=== PATIENT | male | born 1950 | race Caucasian/White ===

== ENCOUNTER 2016-10-08 05:11 | Observation (INO) | payer MEDICARE ==
[~2016-10-08] VITALS: Ht 170.2 cm; Wt 112.0 kg
[2016-10-08] VITALS (7 sets, daily range): BP systolic 152–178; BP diastolic 87–99; PULSE 64–77; RESP 16–20; TEMP 97.4–98.4; O2SAT 92–94
[~2016-10-08 05:11] MED LIST: ALPR0.5T3 PO; AMLO10 PO; GLIP10TA6 PO; LISI40TA PO; METF1000 PO; PROP1CAP3 PO; XANA1TAB2 PO
[2016-10-08] MEDS ORDERED: SODIUM CHLORIDE 0.9% INJ 100 ML ONE (06:50)
[2016-10-08] MEDS ORDERED: CLINDAMYCIN 600 MG/NS 100 ML IV SCH ×2 (07:00)
[2016-10-08] MEDS ORDERED: LIDOCAINE 1%/EPINEPHrine 1:100,000 SOLN 20 ML VIAL ONE ×2 (07:07→08:21)
[2016-10-08] MEDS ORDERED: THROMBIN (TOPICAL) 5,000 UNIT VIAL ONE (07:09)
[2016-10-08] MEDS ORDERED: OXYMETAZOLINE HCL 0.05% 15 ML NASAL SPRAY ONE ×2 (07:09→08:50)
[2016-10-08] MEDS ORDERED: BACITRACIN TOP OINT 15 GM TUBE ONE (07:09)
[2016-10-08] MEDS ORDERED: EPINEPHrine HCL (1:1000) 30 MG/30 ML VIAL ONE (07:09)
[2016-10-08] MEDS ORDERED: MUPIROCIN 2% OINT 22 GM TUBE ONE (07:13)
[2016-10-08] MEDS ORDERED: MIDAZOLAM HCL 2 MG/2 ML VIAL ONE (07:19)
[2016-10-08] MEDS ORDERED: fentaNYL CITRATE 250 MCG/5 ML AMP ONE (07:19)
[2016-10-08] MEDS ORDERED: ACETAMINOPHEN 1000 MG/100 ML VIAL IV ONE (07:19)
[2016-10-08] MEDS ORDERED: DEXAMETHASONE SOD PHOS 4 MG/ML VIAL ONE (07:19)
[2016-10-08] MEDS ORDERED: FAMOTIDINE 20 MG/2 ML VIAL ONE (07:19)
[2016-10-08 07:34] LABS: AUTOMATED NEUTROPHIL # 4.3 TH/MM3 (1.8-7.7); BASOPHIL # 0.1 TH/MM3 (0-0.2); BASOPHIL % 0.8 % (0.0-2.0); EOSINOPHIL # 0.2 TH/MM3 (0-0.4); EOSINOPHIL % 2.1 % (0.0-4.0); HEMATOCRIT 40.9 % (39.0-51.0); HEMO FLAGS DIFF FINAL; LYMPH % 31.4 % (9.0-44.0); LYMPHOCYTE # 2.3 TH/MM3 (1.0-4.8); MEAN CELL VOLUME 86.8 FL (80.0-100.0); MEAN CORPUSCULAR HEMOGLOBIN 29.5 PG (27.0-34.0); MONO % 7.2 % (0.0-8.0); NEUT % 58.5 % (16.0-70.0); PLATELET COUNT 163 TH/MM3 (150-450); RED BLOOD COUNT 4.71 MIL/MM3 (4.50-5.90); RED CELL DISTRIBUTION WIDTH 14.6 % (11.6-17.2); WHITE BLOOD COUNT 7.4 TH/MM3 (4.0-11.0)
[2016-10-08 07:56] LABS: BICARBONATE 26.4 MEQ/L (21.0-32.0); POTASSIUM 3.9 MEQ/L (3.5-5.1)
[2016-10-08] MEDS ORDERED: *ONDANSETRON 4 MG VIAL PERIprocedural Use ONLY ONE (10:56)
[2016-10-08] MEDS ORDERED: ALPRAZolam 0.5 MG TAB PO PRN (11:45)
[2016-10-08] MEDS ORDERED: LEVOFLOXACIN 500 MG PREMIX INJ 100 ML IV SCH (12:00)
[2016-10-08] MEDS ORDERED: PROPOFOL 200 MG/20 ML AMP IV ONE (12:00)
[2016-10-08] MEDS ORDERED: ONDANSETRON HCL 4 MG/2 ML VIAL IV PUSH PRN (12:00)
[2016-10-08] MEDS ORDERED: ePHEDrine/NS 25 MG/5 ML SYR IV ONE (12:00)
[2016-10-08] MEDS ORDERED: LACTATED RINGER'S 1000 ML INJ 1,000 ML IV SCH (12:00)
[2016-10-08] MEDS ORDERED: NEOSTIGMINE 3 MG/3 ML SYR IV ONE (12:00)
[2016-10-08] MEDS ORDERED: ONDANSETRON HCL 4 MG/2 ML VIAL IV PUSH ONE (12:00)
[2016-10-08] MEDS ORDERED: ACETAMINOPHEN/HYDROcodone 325 MG/5 MG TAB PO PRN (12:00)
[2016-10-08] MEDS ORDERED: LACTATED RINGER'S 1000 ML INJ 1,000 ML IV ONE (12:00)
[2016-10-08] MEDS: glipiZIDE 10 MG TAB PO SCH (16:00)
[2016-10-08] MEDS: metFORMIN HCL 500 MG TAB PO SCH (18:00)
--- NOTE | 2016-10-08 19:43 | EKG ---
Date Performed: 10/08/2016 Time Performed: 07:12:36 PTAGE: 65 years EKG: Sinus rhythm NONSPECIFIC T-WAVE ABNORMALITY BORDERLINE ECG PREVIOUS TRACING : 11/14/2006 14.30 Compared to prior tracing no significant change DOCTOR: Jany Camilo Interpretating Date/Time 10/08/2016 19:42:22
[2016-10-08] MEDS ORDERED: METOCLOPRAMIDE HCL 10 MG/2 ML VIAL IV PRN (19:45)
[2016-10-08] MEDS: PROPRANOLOL HCL LA 80 MG CAP PO SCH (22:44)
[2016-10-09] VITALS: BP 166/89; PULSE 82; RESP 20; TEMP 97.8; O2SAT 94
[2016-10-09 04:00] VITALS: BP 171/89; PULSE 74; RESP 20; TEMP 97.8; O2SAT 93
[2016-10-09] MEDS: glipiZIDE 10 MG TAB PO SCH (06:25)
[2016-10-09] MEDS: metFORMIN HCL 500 MG TAB PO SCH (08:04)
[2016-10-09] MEDS: PROPRANOLOL HCL LA 80 MG CAP PO SCH (08:09)
[2016-10-09 08:31] VITALS: BP 154/88; PULSE 74; RESP 16; TEMP 96.6; O2SAT 93
[2016-10-09] MEDS ORDERED: LISINOPRIL 20 MG TAB PO SCH (09:00)
[2016-10-09] MEDS ORDERED: ALPRAZolam 1 MG TAB PO SCH (09:00)
--- NOTE | 2016-11-18 07:02 | MP ---
cc: TANO GOODMAN M.D. DATE OF OPERATION October 08, [address] Tano Goodman PREOPERATIVE DIAGNOSES 1. Sinonasal polyposis. 2. Chronic sinusitis. 3. Nasal airway obstruction. 4. Nasal septal deviation. 5. Hypertrophy of inferior turbinates. POSTOPERATIVE DIAGNOSES 1. Sinonasal polyposis. 2. Chronic sinusitis. 3. Nasal airway obstruction. 4. Nasal septal deviation. 5. Hypertrophy of inferior turbinates. OPERATION PERFORMED 1. Open repair of nasoseptal fracture. 2. Bilateral submucosal resection of inferior turbinates. 3. Bilateral endoscopic total ethmoidectomy. 4. Bilateral endoscopic maxillary antrostomy with debridement of maxillary sinus contents. 5. Bilateral endoscopic sphenoidotomy with debridement of sinus contents. 6. Bilateral endoscopic exploration of frontal sinus ducts with balloon dilation. INDICATIONS Documented in the history and physical. DESCRIPTION OF OPERATION The patient was taken to OR #8 and placed in the supine position. Following induction of general anesthesia and intubation the nose was packed bilaterally with cotton pledgets saturated in 0.05% Oxymetazoline. The nasal septum and inferior turbinates were injected with a total of 12 mL of 1% Xylocaine with epinephrine 1:100,000. He was then prepped and draped for surgery. The nasal packing was removed and a hemitransfixion incision was made in the left nasal vestibule. Through this incision the mucosa of septum was elevated bilaterally as far as the junction of the bony cartilaginous septum. This exposed the quadrangular cartilage which revealed severe and irregular deviation bilaterally due to evidence of old long-healed septal fracture. A cumulative area of 2 x 3-cm was removed preserving 1.5-cm dorsal and caudal cartilaginous struts. Next, the mucosa was elevated from the bony septum and maxillary crest and these were removed using Kevin-Hernan forceps on the bony septum and a 6-mm Wanda chisel on the maxillary crest. The anterior nasal spine was preserved. The incision was then closed with a running suture of 4-0 chromic and the mucosal layers of septum were approximated to each other with a quilting stitch of 4-0 plain gut. The inferior turbinates were addressed. Next they were fractured out medially and stab incisions were made along their inferior surfaces. Through these incisions the submucosal soft tissue was reduced using a curette and preserving the conchal bone. The incisions were then cauterized using the suction Bovie at 35 samson. The remainder of the operation was done using endoscopic visualization. The superior two-thirds of both nasal vaults were filled with polypoid tissue. This was injected with the lidocaine/epinephrine solution, then removed using the power microdebrider to allow inspection of the lateral nasal wall. The polyps were prolapsing from the middle and superior meatus of both sides. When the lateral nasal wall anatomy was visible, it was also injected with lidocaine and epinephrine solution into the attachments of middle turbinates, the uncinate processes and the anterior ethmoid cells. The left side was addressed first beginning with amputation of the middle turbinate using through-cutting Blakesley forceps and power microdebrider followed by uncinectomy and exoneration of the anterior and posterior ethmoid cells using blunt and power dissection. Bone and soft tissue from these cavities were included in the specimen labeled left sinus contents. This was carried back as far as the rostrum of the sphenoid. Next, the polypoid tissue prolapsing from the maxillary ostia was removed using Blakesley forceps. This revealed the ostium which was enlarged and with the power debrider and Stammberger forceps. The maxillary cavity was filled with polypoid tissue, was debrided with an up-biting Blakesley forceps rotated 90 degrees. This was all included in the left sinus contents specimen. Next the maxillary ostium was probed using a #10 suction and it also was then enlarged with the power debrider and debrided of its polypoid tissue contents. The left side was then irrigated with iced saline and packed with cotton pledgets saturated in Oxymetazoline. These remained in place while the right side was operated in the same fashion beginning with amputation of the middle turbinate, uncinectomy, exoneration of the anterior and posterior cells. These were all included in the specimen labeled right sinus contents. The maxillary ostium was enlarged and the cavity was debrided and the same was then completed on the right sphenoid sinus. When these were completed, this right side was then also irrigated with the iced saline and packed with cotton pledgets saturated in Oxymetazoline. These remained in place while the balloon dilation of the frontal ducts was completed, the left side first. The guidewire was advanced into the frontal sinus. The balloon was then advanced over the wire and the duct was dilated at three levels superiorly at the midpoint and inferiorly at the junction of the frontal duct with the ethmoid cavities. When this was completed, the balloon was removed and the frontal sinus was irrigated through the guidewire channels using 200 mL of saline. The guidewire was removed, then advanced into the right frontal sinus. This was then operated in the same fashion with dilation followed by irrigation. The balloon was then removed and the packing was removed from the ethmoid and sphenoid sinuses. Both sides were then filled with Stammberger sinus foam in the sinus cavities and the inferior one-third nasal vault was then packed with 5.5-cm Rapid Rhino inflatable packs. The procedure was then terminated. The patient was reversed from anesthesia and taken to recovery in good condition. No complications. Blood loss was 500 mL. Tano Goodman MD [facility] /6:58 AM /6:49 AM
== END 2016-10-09 09:59 | disposition home or self-care (01) ==
LOC: HSDC 05:11 → HOCA 15:50
PROVIDERS: ADMIT Otolaryngology; ATTEND Otolaryngology
DX: J34.89 Other specified disorders of nose and nasal sinuses (principal); J34.2 Deviated nasal septum; J33.9 Nasal polyp, unspecified; J32.9 Chronic sinusitis, unspecified; J34.3 Hypertrophy of nasal turbinates; E11.9 Type 2 diabetes mellitus without complications
CPT/HCPCS: 00160; 21336; 30140; 31255; 31267; 31288; 31296; 80048; 82948; 85025; 88305; 88311; 88331; 93005; 94150; G0378; J0131; J1100; J1956; J2250; J2405; J2710; J3010; J7120; J0171

== ENCOUNTER 2016-11-04 06:01 | Emergency (ER) | payer MEDICARE ==
[~2016-11-04] VITALS: Ht 170.2 cm; Wt 111.5 kg
[2016-11-04 06:11] VITALS: PULSE 95; RESP 14; O2SAT 95
[2016-11-04 06:22] VITALS: BP 127/67; PULSE 89; RESP 14; O2SAT 95
--- NOTE | 2016-11-04 06:26 | PD ---
HPI Chief Complaint: Nosebleed Time Seen by Provider: 06:22 Travel History International Travel<30 days: No Contact w/Intl Traveler<30days: No Traveled to known affect area: No History of Present Illness HPI This is a 66-year-old gentleman with history of diabetes mellitus, hypertension , who presents here with left sided epistaxis starting this morning. The patient is status post bilateral nasal polypectomies [address] Goodman. He reports that he had complications with his left polypectomy which required sutures. He reports this morning he noted that he thought he felt blood coming down his face. He went to the bathroom and noted a large amount of blood draining from his left naris. When paramedics arrived, they report a large amount of blood and clots in the bathroom. He had active bleeding for which they thought was bilateral. The patient denies any history of blood thinners or aspirin. There are no other complaints time of my examination. PFSH Past Medical History Arthritis: Yes Blood Disorders: No Anxiety: Yes Depression: No Heart Rhythm Problems: No Cancer: No Cardiac Catheterization: No Cardiovascular Problems: Yes (HTN) High Cholesterol: Yes Congestive Heart Failure: No Diabetes: Yes Patient Takes Glucophage: No Diminished Hearing: No Endocrine: Yes Gastrointestinal Disorders: No Genitourinary: No Hepatitis: No Hiatal Hernia: No Hypertension: Yes Immune Disorder: No Musculoskeletal: Yes (wrist) Neurologic: No Psychiatric: Yes Reproductive: No Respiratory: Yes Myocardial Infarction: No Sleep Apnea: Yes Thyroid Disease: No Tetanus Vaccination: Unknown Past Surgical History Abdominal Surgery: Yes (Hernia repair 1996, cholecystecemy 1997) Cardiac Surgery: No Cholecystectomy: Yes Ear Surgery: No Endocrine Surgery: No Eye Surgery: No Genitourinary Surgery: No Gynecologic Surgery: No Joint Replacement: No Neurologic Surgery: Yes (Cervical [id number]) Oral Surgery: No Pacemaker: No Thoracic Surgery: No Other Surgery: Yes (Nasal Polyp removal 3 weeks ago) Social History Alcohol Use: No Tobacco Use: No Substance Use: No Allergies-Medications (Allergen,Severity, Reaction): Coded Allergies: Penicillin (Verified Allergy, Severe, HIVES, 10/08/16) Codeine (Verified Adverse Reaction, Severe, VOMITING, 10/08/16) Morphine (Verified Adverse Reaction, Severe, VOMITING, 10/08/16) Reported Meds & Prescriptions Reported Meds & Active Scripts Active Reported Alprazolam 0.5 Mg Tab 0.5 Mg PO HS PRN Metformin (Metformin HCl) 1,000 Mg Tab 1,000 Mg PO BIDPC With meals Lisinopril 40 Mg Tab 40 Mg PO DAILY Xanax (Alprazolam) 1 Mg Tab 1 Mg PO DAILY Norvasc (Amlodipine Besylate) 10 Mg Tab 10 Mg PO DAILY Glipizide 10 Mg Tab 10 Mg PO BIDAC Take 30 minutes before a meal Inderal XL 24 HR (Propranolol ER 24 HR) 80 Mg Cap 80 Mg PO BID Review of Systems Except as stated in HPI: all other systems reviewed are Neg HENT: Positive: Nosebleed, No: Headaches, Lightheadedness Cardiovascular: No: Chest Pain or Discomfort, Palpitations Respiratory: No: Cough, Shortness of Breath Gastrointestinal: Positive: Nausea, Vomiting (clots), No: Diarrhea, Abdominal Pain Musculoskeletal: No: Weakness, Pain Neurologic: No: Weakness, Dizziness, Headache Physical Exam Narrative GENERAL: Well-developed well-nourished gentleman who had red blood noted on his shirt and in the wash cloth that he was holding up pinching his nose. SKIN: Focused skin assessment warm/dry. ENT: Nasal bleeding. Appeared more from the left than from the right. Moist mucous membranes. NECK: Trachea midline. Supple. CARDIOVASCULAR: Regular rate and rhythm. No murmur appreciated. RESPIRATORY: No accessory muscle use. Clear to auscultation. Breath sounds equal bilaterally. NEUROLOGICAL: Awake and alert. No obvious cranial nerve deficits. Motor grossly within normal limits. Normal speech. Data Data Last Documented VS Vital Signs Date Time Temp Pulse Resp B/P Pulse Ox O2 Delivery O2 Flow Rate FiO2 11/04/16 06:22 89 14 127/67 95 Room Air Orders Complete Blood Count With Diff (11/04/16 06:22) Prothrombin Time / Inr (Pt) (11/04/16 06:22) Act Partial Throm Time (Ptt) (11/04/16 06:22) Labs Laboratory Tests Test 11/04/16 06:25 White Blood Count 7.8 TH/MM3 Red Blood Count 4.31 MIL/MM3 Hemoglobin 12.3 GM/DL Hematocrit 37.2 % Mean Corpuscular Volume 86.4 FL Mean Corpuscular Hemoglobin 28.5 PG Mean Corpuscular Hemoglobin 33.0 % Concent Red Cell Distribution Width 14.6 % Platelet Count 229 TH/MM3 Mean Platelet Volume 8.3 FL Neutrophils (%) (Auto) 53.8 % Lymphocytes (%) (Auto) 35.8 % Monocytes (%) (Auto) 7.4 % Eosinophils (%) (Auto) 2.0 % Basophils (%) (Auto) 1.0 % Neutrophils # (Auto) 4.2 TH/MM3 Lymphocytes # (Auto) 2.8 TH/MM3 Monocytes # (Auto) 0.6 TH/MM3 Eosinophils # (Auto) 0.2 TH/MM3 Basophils # (Auto) 0.1 TH/MM3 CBC Comment DIFF FINAL Differential Comment Prothrombin Time 10.3 SEC Prothromb Time International 0.9 RATIO Ratio Activated Partial 28.0 SEC Thromboplast Time MDM Medical Decision Making Medical Screen Exam Complete: Yes Emergency Medical Condition: Yes Differential Diagnosis Bilateral versus unilateral epistaxis. Posterior versus anterior epistaxis. Narrative Course 66-year-old male who status post bilateral polypectomy, presents today with complaints of epistaxis starting this morning. The patient states he was blowing his nose when he noted it. The patient has been packed on the left side with a 7.5 cm Rhino Rocket. Epistaxis has ceased. CBC shows no evidence of acute issues. Patient's but was counts were within normal limits. We are waiting the PT and APTT. I discussed case with Dr. Denisse Concepcion, physician replacing this physician, he will follow up on the coags and then call Dr. Goodman for disposition. I anticipate Dr. Goodman want to see the patient in his office on a scheduled appointment on . Diagnosis Primary Impression: Left-sided epistaxis Additional Impressions: history of bilateral polypectomy History of urinary retention History of diabetes mellitus Oniel Damon MD Nov 04, 2016 06:26
[2016-11-04 06:52] LABS: AUTOMATED NEUTROPHIL # 4.2 TH/MM3 (1.8-7.7); BASOPHIL # 0.1 TH/MM3 (0-0.2); EOSINOPHIL # 0.2 TH/MM3 (0-0.4); HEMATOCRIT 37.2 % (39.0-51.0); HEMO FLAGS DIFF FINAL; LYMPH % 35.8 % (9.0-44.0); LYMPHOCYTE # 2.8 TH/MM3 (1.0-4.8); MEAN CELL VOLUME 86.4 FL (80.0-100.0); MEAN CORPUSCULAR HEMOGLOBIN 28.5 PG (27.0-34.0); MONO % 7.4 % (0.0-8.0); NEUT % 53.8 % (16.0-70.0); PLATELET COUNT 229 TH/MM3 (150-450); RED BLOOD COUNT 4.31 MIL/MM3 (4.50-5.90); RED CELL DISTRIBUTION WIDTH 14.6 % (11.6-17.2); WHITE BLOOD COUNT 7.8 TH/MM3 (4.0-11.0)
[2016-11-04 07:03] LABS: INTERNATIONAL NORMALIZED RATIO 0.9 RATIO; PROTHROMBIN TIME - PATIENT 10.3 SEC (9.8-11.6)
--- NOTE | 2016-11-04 07:07 | PD ---
Physical Exam Date Seen by Provider: Nov 04, 2016 Time Seen by Provider: 07:05 Narrative The patient is a 66-year-old male who is initially limited by the previous physician, Dr. Damon. Please refer to the initial history, physical , diagnostic evaluation, and treatment modality plan. The patient was signed out at 7 AM and laboratory evaluation and discussion with the ENT pending. Data Data Last Documented VS Vital Signs Date Time Temp Pulse Resp B/P Pulse Ox O2 Delivery O2 Flow Rate FiO2 11/04/16 07:23 72 20 124/69 91 Room Air Orders Complete Blood Count With Diff (11/04/16 06:22) Prothrombin Time / Inr (Pt) (11/04/16 06:22) Act Partial Throm Time (Ptt) (11/04/16 06:22) Ondansetron Inj (Zofran Inj) (11/04/16 08:00) Labs Laboratory Tests Test 11/04/16 06:25 White Blood Count 7.8 TH/MM3 Red Blood Count 4.31 MIL/MM3 Hemoglobin 12.3 GM/DL Hematocrit 37.2 % Mean Corpuscular Volume 86.4 FL Mean Corpuscular Hemoglobin 28.5 PG Mean Corpuscular Hemoglobin 33.0 % Concent Red Cell Distribution Width 14.6 % Platelet Count 229 TH/MM3 Mean Platelet Volume 8.3 FL Neutrophils (%) (Auto) 53.8 % Lymphocytes (%) (Auto) 35.8 % Monocytes (%) (Auto) 7.4 % Eosinophils (%) (Auto) 2.0 % Basophils (%) (Auto) 1.0 % Neutrophils # (Auto) 4.2 TH/MM3 Lymphocytes # (Auto) 2.8 TH/MM3 Monocytes # (Auto) 0.6 TH/MM3 Eosinophils # (Auto) 0.2 TH/MM3 Basophils # (Auto) 0.1 TH/MM3 CBC Comment DIFF FINAL Differential Comment Prothrombin Time 10.3 SEC Prothromb Time International 0.9 RATIO Ratio Activated Partial 28.0 SEC Thromboplast Time [facility] Medical Record Reviewed: Yes Supervised Visit with TONYA: No Interpretation(s) Laboratory Tests Test 11/04/16 06:25 White Blood Count 7.8 TH/MM3 Red Blood Count 4.31 MIL/MM3 Hemoglobin 12.3 GM/DL Hematocrit 37.2 % Mean Corpuscular Volume 86.4 FL Mean Corpuscular Hemoglobin 28.5 PG Mean Corpuscular Hemoglobin 33.0 % Concent Red Cell Distribution Width 14.6 % Platelet Count 229 TH/MM3 Mean Platelet Volume 8.3 FL Neutrophils (%) (Auto) 53.8 % Lymphocytes (%) (Auto) 35.8 % Monocytes (%) (Auto) 7.4 % Eosinophils (%) (Auto) 2.0 % Basophils (%) (Auto) 1.0 % Neutrophils # (Auto) 4.2 TH/MM3 Lymphocytes # (Auto) 2.8 TH/MM3 Monocytes # (Auto) 0.6 TH/MM3 Eosinophils # (Auto) 0.2 TH/MM3 Basophils # (Auto) 0.1 TH/MM3 CBC Comment DIFF FINAL Differential Comment Prothrombin Time 10.3 SEC Prothromb Time International 0.9 RATIO Ratio Activated Partial 28.0 SEC Thromboplast Time Differential Diagnosis Differential diagnosis includes postoperative bleeding, epistaxis, anterior epistaxis, posterior epistaxis, coagulopathy, thrombocytopenia. Narrative Course The patient was initially evaluated by the previous physician, Dr. Damon. Please refer to the initial history, physical, diagnostic evaluation, and treatment modality plan. The patient was signed a 7 AM with PT/INR/APTT pending. The patient recently had surgery by his ear nose and throat physician , Dr. Goodman on October 10. The patient was blown his nose and developed epistaxis mostly on the left naris. The patient had a long Rhino Rocket, 7.5 cm , placed by Dr. Damon which resolved the bleeding. The patient's platelets and coags are unremarkable, therefore, a call was placed to the patient's ENT physician, Dr. Goodman, at 7:07 AM. I discussed the patient with Dr. Yates who is on-call for Dr. Goodman, stated to call the office back after 8 AM to speak with Dr. Goodman personally. The patient was reevaluated at 8 AM, had a small amount of blood trickling down the posterior aspect of the oropharynx which resulted in an episode of vomiting. Therefore, the patient was administered Zofran 4 mg intravenously. I had the patient irrigate the oropharynx with ice water and reevaluated, there was a small amount of blood in the posterior oropharynx with a small clot. A call was placed back to Dr. Goodman at 8:09 AM. I discussed patient with Dr. Goodman who requests a 5.5 cm Rhino Rocket to the right near. Therefore, a 5.5 cm Rhino Rocket was placed in the right naris. Patient then was evaluated in the emergency department and monitored. Patient had a few more episodes of coughing, felt like there was a clot, throat , he is reevaluated multiple times. There is no bleeding out of the anterior aspect the nose, minimal trickling down the posterior aspect. The patient be discharged home with Zofran as needed for nausea, is advised not to pull the Rhino Rocket out in the follow-up with his ENT tomorrow at 10 AM per our discussion on the phone. Procedures Procedure Narrative 5.5 cm Rhino Rocket was placed in the right naris without difficulty. The patient tolerated the procedure without difficulty. There was no obvious complications. Diagnosis Primary Impression: Epistaxis Patient Instructions: General Instructions Additional Instruction: Follow-up with your ENT physician, Dr. Goodman. Zofran as needed. Return if symptoms worsen or progress. Med/Other Pt SpecificInfo: Prescription(s) given Scripts Ondansetron Odt (Zofran Odt)4 Mg Tab4 Mg SL Q6HR PRN (Nausea/Vomiting) #10 TAB Ref 0 Prov:Jacob Concepcion MD 11/04/16 Disposition: 01 DISCHARGE HOME Condition: Stable Jacob Concepcion MD Nov 04, 2016 07:07
[2016-11-04 07:23] VITALS: BP 124/69; PULSE 72; RESP 20; O2SAT 91
[2016-11-04 08:00] VITALS: BP 120/69; PULSE 80; RESP 18; O2SAT 92
[2016-11-04] MEDS ORDERED: ONDANSETRON HCL 4 MG/2 ML VIAL IV PUSH ONE (08:00)
[2016-11-04 09:00] VITALS: BP 143/80; PULSE 82; RESP 16; O2SAT 92
[2016-11-04] MEDS ORDERED: ZOFR4TAB3 SL (09:18)
[2016-11-04 10:00] VITALS: BP 121/70; PULSE 88; RESP 16; O2SAT 94
== END 2016-11-04 10:45 | disposition home or self-care (01) ==
LOC: NEPE 06:01
DX: R04.0 Epistaxis (principal)
CPT/HCPCS: 30901; 85025; 85610; 85730; 96374; 99283; J2405

== ENCOUNTER 2016-11-06 04:22 | Emergency (ER) | payer MEDICARE ==
[~2016-11-06 04:22] MED LIST changes: -BACITRACIN OPHT OINT 3.5 GM TUBO ONE; -BACITRACIN TOP OINT 15 GM TUBE ONE; -CLINDAMYCIN PHOS 600 MG/4 ML VIAL ONE; -EPINEPHrine HCL (1:1000) 1 MG/ML VIAL ONE; -GELFOAM SIZE 100 ONE; -LACTATED RINGER'S 1000 ML INJ 1,000 ML ONE; -LIDOCAINE HCL 1% 30 ML VIAL ONE; -ONDANSETRON HCL 4 MG/2 ML VIAL IV PUSH ONE; -OXYMETAZOLINE HCL 0.05% 15 ML NASAL SPRAY ONE; -PHENYLEPH/NS 1000 MCG/10 ML SYR IV ONE; -PROPOFOL 200 MG/20 ML AMP IV ONE; -SODIUM CHLORIDE 0.9% INJ 100 ML ONE; -THROMBIN (TOPICAL) 5,000 UNIT VIAL ONE; -TOBRAMYCIN/DEXAMETHASONE OPTH OINT 3.5 GM TUBE ONE; -fentaNYL CITRATE 250 MCG/5 ML AMP IV ONE
[2016-11-06] MEDS ORDERED: SODIUM CHLOR 0.9% 1000 ML INJ 1,000 ML IV SCH (04:50)
[2016-11-06 05:00] VITALS: BP 84/56; PULSE 78; RESP 20; TEMP 98.1; O2SAT 97
[2016-11-06] MEDS ORDERED: SODIUM CHLORIDE 0.9% FLUSH 10 ML FLUSH IVF PRN (05:00)
[2016-11-06] MEDS ORDERED: ONDANSETRON HCL 4 MG/2 ML VIAL IVP ONE (05:00)
--- NOTE | 2016-11-06 05:00 | PD ---
HPI Chief Complaint: GI Complaint Time Seen by Provider: 04:50 Travel History International Travel<30 days: No Contact w/Intl Traveler<30days: No Traveled to known affect area: No History of Present Illness HPI The patient is a 66-year-old male who had nasal polyps removed 3 weeks ago. The patient did well until 2 nights ago when he experienced severe bleeding from both nostrils. He came to emergency department bilateral nasal balloons were put in. At that time he did feel like he was going to faint. Dr. Goodman, his chicken cutter, was going to operate this morning to cauterize an artery in the back of his nose according to the patient. The patient started bleeding tonight through both balloons. The blood came posteriorly and he started vomiting blood. He denies any syncopal or near syncopal spells tonight. He does have a history of metformin controlled diabetes and hypertension. PFSH Past Medical History Arthritis: Yes Blood Disorders: No Anxiety: Yes Depression: No Heart Rhythm Problems: No Cancer: No Cardiac Catheterization: No Cardiovascular Problems: No High Cholesterol: Yes Congestive Heart Failure: No Diabetes: Yes (TYPE II) Diminished Hearing: No Endocrine: No Gastrointestinal Disorders: No Genitourinary: No Hepatitis: No Hiatal Hernia: No Hypertension: Yes Immune Disorder: No Musculoskeletal: Yes (wrist) Neurologic: No Psychiatric: No Reproductive: No Respiratory: Yes (COPD) Myocardial Infarction: No Sleep Apnea: Yes Thyroid Disease: No Past Surgical History Abdominal Surgery: Yes (Hernia repair 1995, cholecystecemy 1996) AICD: No Cardiac Surgery: No Cholecystectomy: Yes Ear Surgery: No Endocrine Surgery: No Eye Surgery: No Genitourinary Surgery: No Gynecologic Surgery: No Joint Replacement: No Neurologic Surgery: Yes (Cervical [id number]) Oral Surgery: No Pacemaker: No Thoracic Surgery: No Other Surgery: Yes (Nasal Polyp removal 3 weeks ago) Social History Alcohol Use: No Tobacco Use: No Substance Use: No Allergies-Medications (Allergen,Severity, Reaction): Coded Allergies: Penicillin (Verified Allergy, Severe, HIVES, 11/06/16) Codeine (Verified Adverse Reaction, Severe, VOMITING, 11/06/16) Morphine (Verified Adverse Reaction, Severe, VOMITING, 11/06/16) Reported Meds & Prescriptions Reported Meds & Active Scripts Active Zofran Odt (Ondansetron Odt) 4 Mg Tab 4 Mg SL Q6HR PRN Reported Metformin (Metformin HCl) 1,000 Mg Tab 1,000 Mg PO BIDPC With meals Lisinopril 40 Mg Tab 40 Mg PO DAILY Xanax (Alprazolam) 1 Mg Tab 1 Mg PO DAILY Norvasc (Amlodipine Besylate) 10 Mg Tab 10 Mg PO DAILY Inderal XL 24 HR (Propranolol ER 24 HR) 80 Mg Cap 80 Mg PO BID Review of Systems Except as stated in HPI: all other systems reviewed are Neg Physical Exam Narrative GENERAL: The patient is alert, oriented 3 in minimal apparent distress with his bleeding. He does appear slightly anemic. Vital signs show blood pressure 8456 with pulse of 78, respirations 20 and temperature 98.0. Repeat blood pressure is 101/59. SKIN: Focused skin assessment warm/dry. HEAD: Atraumatic. Normocephalic. EYES: Pupils equal and round. No scleral icterus. No injection or drainage. ENT: No nasal bleeding or discharge. Mucous membranes pink and moist. There is no blood coming anteriorly from the Rhino Rocket balloon packings. At this time there was no blood coursing down the posterior pharyngeal wall. NECK: Trachea midline. No JVD. CARDIOVASCULAR: Regular rate and rhythm. No murmur appreciated. RESPIRATORY: No accessory muscle use. Clear to auscultation. Breath sounds equal bilaterally. GASTROINTESTINAL: Abdomen soft, non-tender, nondistended. Hepatic and splenic margins not palpable. MUSCULOSKELETAL: No obvious deformities. No clubbing. No cyanosis. No edema. NEUROLOGICAL: Awake and alert. No obvious cranial nerve deficits. Motor grossly within normal limits. Normal speech. PSYCHIATRIC: Appropriate mood and affect; insight and judgment normal. Data Data Last Documented VS Vital Signs Date Time Temp Pulse Resp B/P Pulse Ox O2 Delivery O2 Flow Rate FiO2 11/06/16 05:41 20 11/06/16 05:41 75 89/69 98 11/06/16 05:00 98.1 Orders Complete Blood Count With Diff (11/06/16 04:50) Comprehensive Metabolic Panel (11/06/16 04:50) Prothrombin Time / Inr (Pt) (11/06/16 04:50) Act Partial Throm Time (Ptt) (11/06/16 04:50) Red Blood Cells (Rbc) (11/06/16 04:50) Ecg Monitoring (11/06/16 04:50) Iv Access Insert/Monitor (11/06/16 04:50) Oximetry (11/06/16 04:50) Ondansetron Inj (Zofran Inj) (11/06/16 05:00) Sodium Chlor 0.9% 1000 Ml Inj (Ns 1000 M (11/06/16 04:50) Sodium Chloride 0.9% Flush (Ns Flush) (11/06/16 05:00) Type And Screen (11/06/16 04:50) Labs Laboratory Tests Test 11/06/16 05:05 White Blood Count 10.8 TH/MM3 Red Blood Count 3.42 MIL/MM3 Hemoglobin 9.6 GM/DL Hematocrit 28.7 % Mean Corpuscular Volume 84.1 FL Mean Corpuscular Hemoglobin 28.1 PG Mean Corpuscular Hemoglobin 33.4 % Concent Red Cell Distribution Width 13.6 % Platelet Count 248 TH/MM3 Mean Platelet Volume 7.9 FL Neutrophils (%) (Auto) 62.4 % Lymphocytes (%) (Auto) 24.1 % Monocytes (%) (Auto) 8.7 % Eosinophils (%) (Auto) 0.3 % Basophils (%) (Auto) 4.5 % Neutrophils # (Auto) 6.8 TH/MM3 Lymphocytes # (Auto) 2.6 TH/MM3 Monocytes # (Auto) 0.9 TH/MM3 Eosinophils # (Auto) 0.0 TH/MM3 Basophils # (Auto) 0.5 TH/MM3 CBC Comment DIFF FINAL Differential Comment Sodium Level 138 MEQ/L Potassium Level 4.6 MEQ/L Chloride Level 100 MEQ/L Carbon Dioxide Level 28.5 MEQ/L Anion Gap 10 MEQ/L Blood Urea Nitrogen 17 MG/DL Creatinine 1.30 MG/DL Estimat Glomerular Filtration 55 ML/MIN Rate Random Glucose 287 MG/DL Calcium Level 8.1 MG/DL Total Bilirubin 1.0 MG/DL Aspartate Amino Transf 22 U/L (AST/SGOT) Alanine Aminotransferase 26 U/L (ALT/SGPT) Alkaline Phosphatase 63 U/L Total Protein 6.6 GM/DL Albumin 2.9 GM/DL MDM Medical Decision Making Medical Screen Exam Complete: Yes Emergency Medical Condition: Yes Medical Record Reviewed: Yes Interpretation(s) The CBC shows a hemoglobin of 9.6 with hematocrit of 28.7. The hemoglobin on the 11th was 12.3 with hematocrit of 37. The complete metabolic profile shows a GFR 55, glucose 287 with a calcium of 8.1 and albumen 2.9 but is otherwise unremarkable. Differential Diagnosis Posterior epistaxis, anterior epistaxis, anemia from blood loss Narrative Course The patient had a hemoglobin originally of 13.9 on 08 October. When he bled on the of this month, 2 days ago, his hemoglobin was 12.3. He made out of adjusted fully on the first bleed when the hemoglobin was drawn. Today's hemoglobin is 9.6. This may represent both adjusting from the of this month as well as blood loss tonight. The patient is comfortable and has not vomited since he arrived here in emergency department. He is not nauseated. Admitting Information Admitting Physician Requests: Alber Rome MD Nov 06, 2016 05:00
[2016-11-06 05:19] LABS: AUTOMATED NEUTROPHIL # 6.8 TH/MM3 (1.8-7.7); BASOPHIL # 0.5 TH/MM3 (0-0.2); BASOPHIL % 4.5 % (0.0-2.0); EOSINOPHIL % 0.3 % (0.0-4.0); HEMATOCRIT 28.7 % (39.0-51.0); HEMO FLAGS DIFF FINAL; LYMPH % 24.1 % (9.0-44.0); LYMPHOCYTE # 2.6 TH/MM3 (1.0-4.8); MEAN CELL VOLUME 84.1 FL (80.0-100.0); MEAN CORPUSCULAR HEMOGLOBIN 28.1 PG (27.0-34.0); MEAN CORPUSCULAR HGB CONC 33.4 % (32.0-36.0); MONO % 8.7 % (0.0-8.0); NEUT % 62.4 % (16.0-70.0); PLATELET COUNT 248 TH/MM3 (150-450); RED BLOOD COUNT 3.42 MIL/MM3 (4.50-5.90); RED CELL DISTRIBUTION WIDTH 13.6 % (11.6-17.2); WHITE BLOOD COUNT 10.8 TH/MM3 (4.0-11.0)
[2016-11-06 05:23] VITALS: BP 89/69; PULSE 69; RESP 20; O2SAT 93
[2016-11-06 05:35] LABS: CHLORIDE 100 MEQ/L (98-107); POTASSIUM 4.6 MEQ/L (3.5-5.1); SODIUM (NA) 138 MEQ/L (136-145)
[2016-11-06 05:41] VITALS: BP 89/69; PULSE 75; RESP 20; O2SAT 98
[2016-11-06 05:41] LABS: ANION GAP 10 MEQ/L (5-15); BICARBONATE 28.5 MEQ/L (21.0-32.0); BLOOD UREA NITROGEN 17 MG/DL (7-18)
[2016-11-06 05:44] LABS: ALT (GPT) 26 U/L (12-78); AST (GOT) 22 U/L (15-37)
[2016-11-06 05:45] LABS: GLOMERULAR FILTRATION RATE 55 ML/MIN (>89)
[2016-11-06 05:47] LABS: ALKALINE PHOSPHATASE 63 U/L (45-117)
[2016-11-06 06:00] VITALS: BP 116/74; PULSE 78; RESP 20; O2SAT 98
[2016-11-06 06:10] VITALS: BP 122/70; PULSE 79; RESP 20; O2SAT 95
[2016-11-06 06:25] VITALS: BP 134/74
[2016-11-06 06:31] LABS: APTT (PATIENT) 24.2 SEC (24.3-30.1); PROTHROMBIN TIME - PATIENT 10.5 SEC (9.8-11.6)
== END 2016-11-06 06:25 | disposition home or self-care (01) ==
LOC: PHED 04:22
DX: R04.0 Epistaxis (principal); I10 Essential (primary) hypertension; E11.9 Type 2 diabetes mellitus without complications; Z79.4 Long term (current) use of insulin; E78.00 Pure hypercholesterolemia, unspecified; J44.9 Chronic obstructive pulmonary disease, unspecified
CPT/HCPCS: 80053; 85025; 85610; 85730; 86850; 86900; 86901; 86920; 96374; 99283; J2405; J7030

== ENCOUNTER → 2016-11-06 | Day surgery (SDC) | payer MEDICARE ==
[~2016-11-06] VITALS: Ht 170.2 cm; Wt 111.4 kg
[~2016-11-06] MED LIST changes: +BACITRACIN OPHT OINT 3.5 GM TUBO ONE; +BACITRACIN TOP OINT 15 GM TUBE ONE; +CLINDAMYCIN PHOS 600 MG/4 ML VIAL ONE; +EPINEPHrine HCL (1:1000) 1 MG/ML VIAL ONE; +GELFOAM SIZE 100 ONE; -GLIP10TA6 PO; +LACTATED RINGER'S 1000 ML INJ 1,000 ML ONE; +LIDOCAINE HCL 1% 30 ML VIAL ONE; +ONDANSETRON HCL 4 MG/2 ML VIAL IV PUSH ONE; +OXYMETAZOLINE HCL 0.05% 15 ML NASAL SPRAY ONE; +PHENYLEPH/NS 1000 MCG/10 ML SYR IV ONE; +PROPOFOL 200 MG/20 ML AMP IV ONE; +SODIUM CHLORIDE 0.9% INJ 100 ML ONE; +THROMBIN (TOPICAL) 5,000 UNIT VIAL ONE; +TOBRAMYCIN/DEXAMETHASONE OPTH OINT 3.5 GM TUBE ONE; +ZOFR4TAB3 SL; +fentaNYL CITRATE 250 MCG/5 ML AMP IV ONE
[2016-11-06] MEDS: OXYMETAZOLINE HCL 0.05% 15 ML NASAL SPRAY ONE ×2 (06:34→07:18)
[2016-11-06] MEDS: LIDOCAINE 1%/EPINEPHrine 1:100,000 SOLN 30 ML VIAL ONE ×2 (06:35→07:19)
[2016-11-06 06:37] VITALS: BP 142/87; PULSE 83; RESP 20; TEMP 97.9; O2SAT 94
[2016-11-06 09:32] VITALS: BP 148/71; PULSE 82; RESP 16; TEMP 98.5; O2SAT 95
--- NOTE | 2016-11-08 23:00 | MP ---
cc: TANO GOODMAN MD DATE OF SURGERY 11/06/[address] Genie Goodman PREOPERATIVE DIAGNOSIS Postoperative epistaxis. POSTOPERATIVE DIAGNOSIS Postoperative epistaxis. OPERATION PERFORMED 1. Bilateral endoscopic debridement of paranasal sinuses, postoperative 2. Bilateral endoscopic control of epistaxis INDICATIONS Chago Mirza is a 66-year-old man who is approximately 3 weeks out from bilateral endoscopic sinus surgery for severe sinonasal polyposis. He has had a few days of intermittent bleeding from the left side of his nose which then turned into brisk bleeding which lasted about 15 minutes and required packing in the emergency room. Since the packing has been in place, he has had one more episode of bleeding from the posterior into his oropharynx. The patient was taken to OR #4 and placed in the supine position. following induction of general anesthesia and intubation, a Larry head drape was put in place. The patient was prepped and draped for surgery. The rapid rhino balloons were removed from the nose bilaterally. There was a 7.5 cm pack on the left side and a 5.5 on the right. These were removed and the nose was then irrigated with saline and was suctioned and then examined under endoscopic visualization. There was heavy eschar and debris as well as blood clots obstructing view of the paranasal sinuses. This was debrided using the Laura forceps and #8 suction. A suspicious area in the left posterior lateral wall was then probed with a suction and eschar removed resulting in brisk arterial bleeding from the distal branches of the left sphenopalatine artery. This area was briefly packed and then cauterized using suction Bovie at 35 samson. The right side was then examined endoscopically. Small sites of mucosal trauma were cauterized on this side. There was no arterial bleeding on the right side. At this point, the procedure was terminated. There was no packing placed in the nose at the end of the case. The patient was then reversed from anesthesia and taken to recovery in good condition. There were no complications. Blood loss was 60 mL. MD JONE Perera/ /9:57 AM /10:46 PM
== END | disposition home or self-care (01) ==
LOC: PHSDC 06:30
PROVIDERS: ATTEND Otolaryngology
DX: T88.8XXA Other specified complications of surgical and medical care, not elsewhere classified, initial encounter (principal); R04.0 Epistaxis; I10 Essential (primary) hypertension; E11.9 Type 2 diabetes mellitus without complications; Z79.4 Long term (current) use of insulin; E78.00 Pure hypercholesterolemia, unspecified; J44.9 Chronic obstructive pulmonary disease, unspecified
CPT/HCPCS: 00160; 31238; 80053; 85025; 85610; 85730; 86850; 86900; 86901; 86920; 96374; 99283; J0171; J2370; J2405; J3010; J7030; J7120